=== PATIENT | female | born 1945 | race Caucasian/White ===

== ENCOUNTER 2017-05-25 13:18 | Emergency (ER) | payer MEDICARE, MEDICAID ==
[~2017-05-25] VITALS: Ht 170.2 cm; Wt 73.5 kg
[2017-05-25] MEDS ORDERED: ASPI-1182 PO (13:31)
[2017-05-25] MEDS ORDERED: METO50 PO (13:31)
[2017-05-25] MEDS ORDERED: ENAL20 PO (13:31)
[2017-05-25] MEDS ORDERED: SIMV-260 PO (13:35)
[2017-05-25] MEDS ORDERED: TRAM50TA4 PO (13:35)
[2017-05-25] MEDS ORDERED: ESCI10TA PO (13:35)
[2017-05-25] MEDS ORDERED: NIFE30TA91 PO (13:35)
[2017-05-25] MEDS ORDERED: METF500T4 PO (13:35)
[2017-05-25] MEDS ORDERED: HYDROCODONE/ACETAMINOPHEN 5-325 MG TABLET PO ONE (14:00)
[2017-05-25 15:48] VITALS: BP 140/80
== END 2017-05-25 16:33 | disposition home or self-care (01) ==
LOC: EMS 13:19
DX: S43.401A Unspecified sprain of right shoulder joint, initial encounter (principal); I10 Essential (primary) hypertension; E11.9 Type 2 diabetes mellitus without complications; W06.XXXA Fall from bed, initial encounter; Y93.89 Activity, other specified; Y92.89 Other specified places as the place of occurrence of the external cause; Y99.8 Other external cause status
CPT/HCPCS: 99284

== ENCOUNTER 2022-12-22 14:53 | Emergency (ER) | payer MEDICARE, MEDICAID ==
[~2022-12-22] VITALS: Ht 152.4 cm; Wt 100.0 kg
[~2022-12-22 14:53] MED LIST: ASPI-1444 PO; ENAL20 PO; ESCI-8 PO; METF-1211 PO; METO50 PO; NIFE-40 PO; SIMV-260 PO; TRAM-559 PO
[2022-12-22 18:09] VITALS: BP 144/72; PULSE 62; RESP 16; TEMP 98
[2022-12-23 03:21] LABS: GLUCOMETER DEV NAME(LOC) ERT.5; GLUCOSE,POINT OF CARE 217 MG/DL (70-110)
== END 2022-12-22 18:14 | disposition home or self-care (01) ==
LOC: EMS 15:02
DX: S50.02XA Contusion of left elbow, initial encounter (principal); E11.9 Type 2 diabetes mellitus without complications; I10 Essential (primary) hypertension; X58.XXXA Exposure to other specified factors, initial encounter; Y93.89 Activity, other specified; Y92.89 Other specified places as the place of occurrence of the external cause; Y99.8 Other external cause status
CPT/HCPCS: 82962; 99283